=== PATIENT | female | born 1970 | race Hispanic/Latino ===

== ENCOUNTER 2018-06-23 12:26 | Outpatient (CLI) | payer BC | END 2018-06-23 12:27 | disposition home or self-care (01) | LOC: RAD 12:26 ==

== ENCOUNTER 2018-07-08 10:03 | Outpatient (CLI) | payer BC | END 2018-07-08 10:04 | disposition home or self-care (01) | LOC: RAD 10:03 ==

== ENCOUNTER 2018-08-07 14:40 | Day surgery (SDC) | payer BC ==
[2018-08-04 14:16] VITALS: BMI 28.1
[2018-08-07 15:10] VITALS: TEMP 97.5
[2018-08-07 15:25] LABS: HEMOGLOBIN 12.7 g/dL (12.0-16.0); MEAN CELL VOLUME 92.7 fl (80.0-105.0); MEAN CORPUSCULAR HGB CONC 32.4 g/dl (31.0-37.0); MEAN PLATELET VOLUME 9.3 fl (7.0-11.0); RBC 4.23 10^6/uL (3.5-6.1); RED CELL DISTRIBUTION WIDTH 13.1 % (11.5-14.5)
[2018-08-07 15:38] LABS: INR 1.07; PARTIAL THROMBOPLASTIN TIME 30.7 Seconds (26.9-38.3); PROTHROMBIN TIME 11.9 SECONDS (9.4-12.5)
[2018-08-07 15:52] LABS: BLOOD UREA NITROGEN 15 mg/dL (7-21); CALCIUM 9.7 mg/dL (8.4-10.5); GFR NON-AFRICAN AMERICAN > 60
[2018-08-07] MEDS ORDERED: Midazolam 2 MG/2 ML VIAL ONE (17:00)
[2018-08-07] MEDS ORDERED: Lidocaine 1% Inj (20ml) ONE (17:01)
[2018-08-07] MEDS ORDERED: Midazolam 2 MG/2 ML VIAL IVP ONE (17:30)
[2018-08-07] MEDS ORDERED: Oxycodone/Acetaminophen 5/325 mg Tab PO PRN (17:44)
[2018-08-07] MEDS ORDERED: Sodium Chloride 0.45% 1,000 ML IV SCH (17:45)
[2018-08-07 18:39] VITALS: RESP 17
--- NOTE | 2018-08-07 18:51 | CT ---
PROCEDURE: CT guided right lower lobe lung biopsy. HISTORY: Metastatic breast CA. New 5 cm right lower lobe mass. Evaluate for metastatic disease. PHYSICIAN(S): Sanjiv Huitron MD. TECHNIQUE: The relative risks and indications of the procedure were explained to the patient and consent obtained. The patient was placed prone on the CT scanner and preliminary images through the lung bases obtained. Conscious sedation and monitoring were provided throughout the procedure by a nurse. There is a 5 cm mass in the right lower lobe posteriorly. In addition there appears to be lymphangitic spread in the right lung.. A right posterior approach was selected and the area prepped and draped in the usual sterile fashion. 1% Xylocaine was used to anesthetize the skin and soft tissues. A 18 gauge guiding needle was advanced into the 5 cm right lower lobe nodule.. Its position was confirmed with CT. Using coaxial technique, multiple core biopsies were obtained. The postprocedure images show no evidence of large pneumothorax or significant hemorrhage.. IMPRESSION: 1. CT-guided right lower lobe lung biopsy as described above.
--- NOTE | 2018-08-07 18:57 | RAD ---
Date of service: 08/07/2018 HISTORY: Post right lung biopsy COMPARISON: 06/23/2018 single-view chest. August 07, 2018 CT thorax part of right lung biopsy. FINDINGS: LUNGS: Consolidative changes again identified as is a known mass in the right lower lobe previously biopsied. PLEURA: No pneumothorax following right lung biopsy. CARDIOVASCULAR: No atherosclerotic calcification present Normal. OSSEOUS STRUCTURES: No significant abnormalities. VISUALIZED UPPER ABDOMEN: Normal. OTHER FINDINGS: None. IMPRESSION: No adverse findings/no pneumothorax following biopsy of a right lower lobe mass.
[2018-08-07 19:14] VITALS: BP 159/96; PULSE 106; O2SAT 95
== END 2018-08-07 20:42 | disposition home or self-care (01) ==
LOC: SDS 14:40 → 3RSO 17:52 → SDS 20:42
PROVIDERS: ATTEND Radiology Vascular & Interventional Radiology
DX: C78.01 Secondary malignant neoplasm of right lung (principal); Z85.3 Personal history of malignant neoplasm of breast
CPT/HCPCS: 32405; 36415; 71045; 77012; 80048; 84703; 85027; 85610; 85730; 88305; J2250; J2405; J3010; J7030

== ENCOUNTER 2018-08-14 12:41 | Outpatient (CLI) | payer BC | END 2018-08-14 12:42 | disposition home or self-care (01) | LOC: CARDIO 12:41 ==

== ENCOUNTER 2018-08-21 12:59 | Inpatient (IN) | payer BC ==
[2018-08-04 14:16] VITALS: BMI 28.1
[2018-08-21] MEDS ORDERED: Lidocaine PF 2% (5 ml) Inj (For Cardiac Arrhy) ONE (14:25)
[2018-08-21 14:34] LABS: BASO # 0.04 K/mm3 (0.0-2.0); BASO % 0.2 % (0.0-3.0); HEMOGLOBIN 13.7 g/dL (12.0-16.0); LYMPH # 1.3 (1.2-3.4); LYMPH % 7.8 % (22.0-35.0); MEAN CELL VOLUME 91.6 fl (80.0-105.0); MEAN CORPUSCULAR HEMOGLOBIN 30.3 pg (25.0-35.0); MEAN CORPUSCULAR HGB CONC 33.1 g/dl (31.0-37.0); MEAN PLATELET VOLUME 9.7 fl (7.0-11.0); MONO # 0.4 (0.1-0.6); MONO % 2.3 % (1.0-6.0); RBC 4.52 10^6/uL (3.5-6.1); RED CELL DISTRIBUTION WIDTH 13.5 % (11.5-14.5); WHITE BLOOD COUNT 16.3 10^3/uL (4.5-11.0)
[2018-08-21 14:39] LABS: INR 1.05; PARTIAL THROMBOPLASTIN TIME 29.2 Seconds (26.9-38.3); PROTHROMBIN TIME 11.7 SECONDS (9.4-12.5)
[2018-08-21] MEDS ORDERED: Midazolam 2 MG/2 ML VIAL ONE ×3 (15:05→16:07)
[2018-08-21 15:11] LABS: BLOOD UREA NITROGEN 16 mg/dL (7-21); CALCIUM 10.2 mg/dL (8.4-10.5); GFR NON-AFRICAN AMERICAN > 60
--- NOTE | 2018-08-21 17:25 | CP.PCM.HP ---
History of Present Illness - History of Present Illness History of Present Illness: Oliver Arias DO, PGY-1 Hematology/Oncology Admission History and Physical for Dr. Araiza CC: s/p port placement, first session of Tecentriq, abraxane inpatient HPI: Ms. 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 She most recently had chest CT for concern of persistent, worsening cough, SOB, and URI sx's. She was found to have evidence of recurrent disease in the RLL of the lung, in the mediastinum, and the jugular and deep cervical chain lymph nodes on the right side. She subsequently underwent PET CT which confirmed RLL disease. CT-guided bx of the lung lesion confirmed to be poorly differentiated carcinoma consistent with her prior breast lesions. Patient was s een and examined s/p port placement. She states she continues to have persistent, bothersome cough but otherwise denies fever/chills, CP, SOB, abd pain/nausea/vomiting, or urinary complaints. 12-point ROS was otherwise negative except as specified above. 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), triple-negative R breast CA (s/p R mastectomy and adjuvant chemo and XRT 2001), L triple-negative breast CA (s/p lumpectomy w/adjuvant XRT with procure radiation and adjuvant xeloda completed 10/2016) Past Surgical History: R breast lumpectomy, L breast mastectomy with reconstruction Allergies: niacin, codein, moxifloxacin Home medications: Lyrica, tesalon pearls, prednisone 20 mg daily, prendan, omeprazole 20 mg daily, singulair 10 mg daily, Flonase PRN HS Family History: father and mother both alive and well, father has DM2, brother from leukemia Social History: denies current or prior tobacco, EtOH, or illicit drug use, 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 Present on Admission - Present on Admission Any Indicators Present on Admission: No History of DVT/PE: No History of Uncontrolled Diabetes: No Urinary Catheter: No Decubitus Ulcer Present: No Past Patient History - Past Social History Chewing Tobacco Use: No - CARDIAC Hx Pacemaker: No - NEUROLOGICAL Hx Paralysis: No - HEMATOLOGICAL/ONCOLOGICAL Hx Blood Transfusions: No - MUSCULOSKELETAL/RHEUMATOLOGICAL Hx Musculoskeletal Disorders: No - PSYCHIATRIC Hx Emotional Abuse: No Hx Physical Abuse: No Hx Substance Use: No - SURGICAL HISTORY Hx Surgeries: Yes - ANESTHESIA Hx Anesthesia Reactions: No Hx Malignant Hyperthermia: No Meds Allergies/Adverse Reactions: Allergies Allergy/AdvReac Type Severity Reaction Status Date / Time niacin Allergy Severe SWELLING Unverified 08/21/18 14:11 codeine Allergy NAUSEA Verified 08/04/18 14:12 moxifloxacin [From Avelox] Allergy SWELLING Verified 08/04/18 14:12 Physical Exam - Constitutional Appears: Non-toxic, No Acute Distress - Head Exam Head Exam: ATRAUMATIC, NORMOCEPHALIC - Eye Exam Eye Exam: EOMI, PERRL - ENT Exam ENT Exam: Mucous Membranes Moist - Neck Exam Neck exam: Negative for: Tenderness Additional comments: R sided port placement site appears clean, dry, intact - Respiratory Exam Respiratory Exam: Rhonchi (coarse breath sounds b/l). absent: Accessory Muscle Use, Rales, Wheezes, Respiratory Distress - Cardiovascular Exam Cardiovascular Exam: REGULAR RHYTHM, RRR, +S1, +S2. absent: Diastolic murmur, Gallop, Rubs, Systolic Murmur - GI/Abdominal Exam GI & Abdominal Exam: Soft. absent: Guarding, Rebound, Tenderness - Extremities Exam Extremities exam: Positive for: full ROM. Negative for: pedal edema - Back Exam Back exam: NORMAL INSPECTION - Neurological Exam Neurological exam: Alert, Oriented x3 - Psychiatric Exam Psychiatric exam: Normal Affect, Normal Mood - Skin Skin Exam: Dry, Intact, Warm Results - Vital Signs Recent Vital Signs: Last Vital Signs Temp 98 F 08/21/18 17:00 Pulse 106 H 08/21/18 17:00 Resp 12 08/21/18 17:00 BP 143/90 08/21/18 17:00 Pulse Ox 96 08/21/18 17:00 - Labs Result Diagrams: 08/21/18 13:20 08/21/18 13:20 Labs: Laboratory Results - last 24 hr 08/21/18 08/21/18 08/21/18 13:20 13:20 13:20 WBC 16.3 H D RBC 4.52 Hgb 13.7 Hct 41.4 MCV 91.6 MCH 30.3 MCHC 33.1 RDW 13.5 Plt Count 398 MPV 9.7 Neut % (Auto) 89.7 H Lymph % (Auto) 7.8 L Maverick % (Auto) 2.3 Eos % (Auto) 0.0 L Baso % (Auto) 0.2 Lymph # (Auto) 1.3 Maverick # (Auto) 0.4 Eos # (Auto) 0.0 Baso # (Auto) 0.04 Absolute Neuts (auto) 14.62 H PT 11.7 INR 1.05 APTT 29.2 Sodium 137 Potassium 4.4 Chloride 99 Carbon Dioxide 25 Anion Gap 18 BUN 16 Creatinine 0.5 L Est GFR ( Amer) > 60 Est GFR (Non-Af Amer) > 60 Random Glucose 174 H Calcium 10.2 Urine HCG, Qual 08/21/18 13:40 WBC RBC Hgb Hct MCV MCH MCHC RDW Plt Count MPV Neut % (Auto) Lymph % (Auto) Maverick % (Auto) Eos % (Auto) Baso % (Auto) Lymph # (Auto) Maverick # (Auto) Eos # (Auto) Baso # (Auto) Absolute Neuts (auto) PT INR APTT Sodium Potassium Chloride Carbon Dioxide Anion Gap BUN Creatinine Est GFR ( Amer) Est GFR (Non-Af Amer) Random Glucose Calcium Urine HCG, Qual Negative Assessment & Plan - Assessment and Plan (Free Text) Assessment: 47 yo F with PMH of chronic phase CML (dx 2011, maintained on Gleevec), triple- negative R breast CA (s/p R mastectomy and adjuvant chemo and XRT 2001), L triple-negative breast CA (s/p lumpectomy w/adjuvant XRT with procure radiation and adjuvant xeloda completed 10/2016) admitted s/p port placement for first doses of Tecentriq and abraxane. She was also found to have pyuria with leukocyte esterase and positive UCx prior to admission and is treated for cystitis. Plan: R sided triple-negative breast CA with RLL metastasis Identified on CT chest completed for patient's persistent cough, wheezing, SOB RLL mets with mediastinal, jugular, and deep cervical chain lymph nodes on the R Mets confirmed to be of breast origin by CT-guided biopsy Follow-up head, neck, chest CT ordered to r/o additional metastatic disease S/p port placement today Will repeat blood work in AM prior to starting Tecentriq and abraxane Tecentriq 840 mg and abraxane 100 mg to be given for initial doses tomorrow per [facility] protocol Prior TTE reviewed with katie Brown to proceed with chemotherapy as planned (given history of Adriamycin treatments) Cardiology consult placed for additional recs as needed Cough, SOB Likely 2/2 RLL metastatic disease Continue tessalon pearls, prednisone Pulmonology consult placed, all recs appreciated Persistent hyperglycemia Likely 2/2 need for steroid use Patient has no known history of DM2 Will check A1c Endocrinology consult placed, all recs appreciated UTI Identified on UA, confirmed with UCx completed prior to admission Will treat with rocephin DVT/GI PPX: Lovenox/protonix Full Code Liquid diet and advance to regular tomorrow AM Monitor on oncology unit Patient seen, examined with, and plan discussed with my attending Dr. Teodora Arias D.O. IM Resident PGY-1
[2018-08-21] MEDS: guaiFENesin 200 mg/10 ml Syrup UD PO PRN (18:40)
[2018-08-21] MEDS: cefTRIAXone 1 gm 1 GM/100 ML BAG IVPB SCH (18:40)
[2018-08-21] MEDS: Sodium Chloride 0.45% 1,000 ML IV SCH (18:41)
--- NOTE | 2018-08-21 20:15 | CON ---
DATE OF CONSULTATION: 08/21/2018 ENDOCRINOLOGY CONSULTATION ROOM: 369. HISTORY OF PRESENT ILLNESS: This is a 47-year-old female with known history of type 2 diabetes and hypertension, on oral hypoglycemic therapy, now admitted for ongoing chemo and immunotherapy for recurrent breast carcinoma and metastatic lung disease confirmed to be a poorly differentiated carcinoma as noted. PAST MEDICAL HISTORY: History of type 2 diabetes, currently on Prandin taken as 0.5 mg t.i.d. with meals; history of hypertension and dyslipidemia; history of triple negative right breast carcinoma with a right mastectomy, and received chemo and radiation therapy in 2001, followed by development of chronic myelogenous leukemia diagnosed in 2011 and has been on maintenance therapy with Gleevec therapy. She subsequently developed left triple negative breast carcinoma and underwent a lumpectomy with radiation and chemotherapy in 2017. Her recent CT scan showed the presence of a right lower lobe recurrent mass lesion and also present in the mediastinum and cervical lymph nodes confirming the presence of a poorly differentiated carcinoma consistent with her prior breast lesions. She is currently on prednisone taken as 20 mg once daily. FAMILY HISTORY: Her father has type 2 diabetes and the brothers succumbed from leukemia. SOCIAL HISTORY: The patient has supportive family. No known substance use. REVIEW OF SYSTEMS: Admits to generalized body weakness with progressive bouts of dizziness and lightheadedness with easy fatigability and tiredness and suboptimal energy level. No chest pains, but admits to progressive shortness of breath, especially on exertion. She also has a persistent productive cough over the last few weeks prior to admission. Her oral intake has been extremely poor and variable with vague and diffuse abdominal pain. No recent alterations of bowel and urinary patterns. PHYSICAL EXAMINATION: GENERAL: This is an average built female, in no apparent distress. VITAL SIGNS: Blood pressure of 140/80, pulse of 100 beats per minute regular, temperature 98, respirations 20, height is 5 feet 4 inches, weight is 164 pounds. HEENT: Head, normocephalic. Eyes, anicteric with pink conjunctivae. Fundoscopy not possible at this time. Ears, nose, and throat, otherwise normal. NECK: Supple. Thyroid gland is normal in size. No carotid bruits or any cervical adenopathy. CARDIOPULMONARY: Adynamic precordium. S1, S2 are rapid and regular. LUNGS: Show scattered rhonchi. ABDOMEN: Flat, soft with positive bowel sounds. EXTREMITIES: No peripheral edema. Pulses are +2 bilaterally. LABORATORY DATA: Her chemistries showed a BUN of 16, sodium 137, potassium 4.4, chloride 99, CO2 of 25, glucose 174, and creatinine 0.5 with a calcium of 10.2. Her hemoglobin is 13.7, hematocrit of 41, WBC is 16.3, and platelets are 398. ASSESSMENT: This is a 47-year-old female with known history of type 2 diabetes, controlled on low-dose oral hypoglycemic therapy, presenting here for ongoing chemo and immunotherapy for recurrent breast carcinoma and supervening lung and cervical node metastases. PLAN OF MANAGEMENT: We will continue the Prandin ordered as 0.5 mg t.i.d. with meals, and we will titrate incrementally as indicated to optimize metabolic control. We will obtain a hemoglobin A1c to confirm her prior glycemic control and baseline thyroid function studies will be ordered. We will obtain serial chemistries and continue the IV hydration as given at this time. We will follow and advise accordingly. Bushra Mtz MD
--- NOTE | 2018-08-21 20:20 | VASCULAR ---
PROCEDURE: Ultrasound and fluoroscopic right internal jugular venous access port. CLINICAL HISTORY: Metastatic breast carcinoma.Venous port for chemotherapy. PHYSICIAN(S): Sanjiv Huitron M.D. TECHNIQUE: The relative risks and indications of the procedure were explained to the patient and consent obtained. The patient was placed supine on the arteriogram table and the right neck and chest prepped and draped in the usual sterile fashion. Conscious sedation monitoring was provided throughout the procedure by a nurse. Antibiotics were given prior to the procedure. Under direct ultrasound guidance, the right internal jugular vein was punctured with a micro-puncture set. A 0.035 angled Glidewire was advanced into the IVC. A 4 cm incision was made below the right clavicle and the pocket blunted dissected. A 8 Danish single-lumen catheter, 23 cm long, was advanced to the SVC/RA junction. The catheter was trimmed and attached to the port. The port aspirates and injects easily. The port was placed in the pocket and closed in 2 layers. An access needle was placed. The patient tolerated the procedure well. IMPRESSION: Ultrasound and fluoroscopically placed right internal jugular venous access port.
[2018-08-21] MEDS: Fluticasone Nasal 50 mcg/Spray NS SCH (21:13)
[2018-08-21] MEDS: DiphenhydrAMINE 50 mg/ml Inj IVP PRN (21:45)
[2018-08-22] MEDS: Morphine 2 mg/ml ISec IVP PRN ×2 (01:47→23:02)
[2018-08-22] MEDS: Pantoprazole 40 mg EC Tab PO SCH (06:02)
[2018-08-22 06:56] LABS: BASO # 0.13 K/mm3 (0.0-2.0); BASO % 1.2 % (0.0-3.0); EOS % 0.4 % (1.5-5.0); HEMOGLOBIN 12.4 g/dL (12.0-16.0); LYMPH # 2.8 (1.2-3.4); LYMPH % 25.2 % (22.0-35.0); MEAN CORPUSCULAR HEMOGLOBIN 28.8 pg (25.0-35.0); MEAN PLATELET VOLUME 9.5 fl (7.0-11.0); MONO # 0.7 (0.1-0.6); MONO % 6.1 % (1.0-6.0); RBC 4.3 10^6/uL (3.5-6.1); RED CELL DISTRIBUTION WIDTH 13.7 % (11.5-14.5)
[2018-08-22 07:23] LABS: ALBUMIN 3.5 g/dL (3.0-4.8); ALT/SGPT 38 U/L (7-56); AST/SGOT 33 U/L (14-36); BLOOD UREA NITROGEN 13 mg/dL (7-21); CALCIUM 9.2 mg/dL (8.4-10.5); GFR NON-AFRICAN AMERICAN > 60; HDL CHOLESTEROL 43 mg/dL (29-60)
[2018-08-22 07:33] LABS: LDL CHOLESTEROL 141 mg/dL (0-129)
--- NOTE | 2018-08-22 08:53 | CT ---
Date of service: 08/22/2018 PROCEDURE: CT HEAD WITHOUT CONTRAST. HISTORY: triple negative breast CA, recent RLL mets COMPARISON: None available. TECHNIQUE: Axial computed tomography images were obtained through the head/brain without intravenous contrast. Radiation dose: Total exam DLP = 966.85 mGy-cm. This CT exam was performed using one or more of the following dose reduction techniques: Automated exposure control, adjustment of the mA and/or kV according to patient size, and/or use of iterative reconstruction technique. FINDINGS: HEMORRHAGE: No intracranial hemorrhage. BRAIN: No mass effect or edema. No atrophy or chronic microvascular ischemic changes. VENTRICLES: Unremarkable. No hydrocephalus. CALVARIUM: Unremarkable. PARANASAL SINUSES: Unremarkable as visualized. No significant inflammatory changes. MASTOID AIR CELLS: Unremarkable as visualized. No inflammatory changes. OTHER FINDINGS: None. IMPRESSION: Normal CT of the Head.
--- NOTE | 2018-08-22 08:58 | CT ---
Date of service: 08/22/2018 PROCEDURE: CT NECK WITHOUT CONTRAST HISTORY: RLL mets recently found, triple neg breast CA COMPARISON: None available. TECHNIQUE: CT of the neck without intravenous contrast. Coronal and sagittal reformats generated. Radiation dose: Total exam DLP = 365.46 mGy-cm. This CT exam was performed using one or more of the following dose reduction techniques: Automated exposure control, adjustment of the mA and/or kV according to patient size, and/or use of iterative reconstruction technique. FINDINGS: NASOPHARYNX: Unremarkable. SUPRAHYOID NECK: Unremarkable oropharynx, oral cavity, parapharyngeal space and retropharyngeal space. INFRAHYOID NECK: Unremarkable larynx, hypopharynx, and supraglottic space. Vocal cords intact. MASS: None. GLANDS: Parotid and submandibular glands unremarkable. Normal size thyroid gland, without nodule. LYMPH NODES: There is a 3 x 3.6 cm supriya mass in the right supraclavicular fossa. No other cervical lymph nodes are seen. CERVICAL SPINE: No fracture or focal lesion. OTHER FINDINGS: None. IMPRESSION: There is a 3 x 3.6 cm supriya mass in the right supraclavicular fossa. No other cervical lymph nodes are seen.
--- NOTE | 2018-08-22 09:02 | CT ---
Date of service: 08/22/2018 PROCEDURE: CT Chest without contrast HISTORY: RLL METS COMPARISON: Recent lung biopsy 08/07/2018 TECHNIQUE: Contiguous axial images were obtained through the chest without intravenous contrast enhancement. Sagittal and coronal reconstructions were performed. Radiation dose: Total exam DLP = 349.33 mGy-cm. This CT exam was performed using one or more of the following dose reduction techniques: Automated exposure control, adjustment of the mA and/or kV according to patient size, and/or use of iterative reconstruction technique. FINDINGS: LUNGS: There is a large mass in the right lower lobe measuring 37 x 45 mm. There is diffuse interstitial infiltration consistent with lymphangitis tumor spread. Multiple small nodules are seen in the periphery of the right lung. The left lung is clear. MEDIASTINUM: Unremarkable thoracic aorta. No aneurysm. Normal sized heart. Main pulmonary artery unremarkable. No vascular congestion. There is mediastinal adenopathy. There is a 26 mm pre tracheal lymph node. There is a 36 mm subcarinal lymph node. There is also right hilar adenopathy. No aortic atherosclerotic calcification. PLEURA: No pleural fluid. No pneumothorax. BONES: No fracture. No destructive lesion. UPPER ABDOMEN: Gallstone OTHER FINDINGS: None. IMPRESSION: There is a large mass in the right lower lobe measuring 37 x 45 mm. There is diffuse interstitial infiltration consistent with lymphangitic tumor spread. Multiple small nodules are seen in the periphery of the right lung. The left lung is clear. There is mediastinal adenopathy. There is a 26 mm pre tracheal lymph node. There is a 36 mm subcarinal lymph node. There is also right hilar adenopathy.
--- NOTE | 2018-08-22 09:08 | CP.PCM.PN ---
Subjective - Date & Time of Evaluation Date of Evaluation: 08/22/18 Time of Evaluation: 07:00 - Subjective Subjective: Oliver Arias DO, PGY-1 Hematology/Oncology Progress Note for Dr. Araiza Patient was seen and examined at bedside this AM. She reports some discomfort at the port site last night but this has improved. She also states she had trouble sleeping last night but was able to fall asleep after morphine was administered. She also complains of discomfort fromt he tape at the port site. She otherwise has no new complaints and denies fever/chills, CP, SOB, abd pain/nausea/vomiting. Objective - Vital Signs/Intake and Output Vital Signs (last 24 hours): Temp Pulse Resp BP Pulse Ox 97.3 F L 100 H 20 108/73 94 L 08/22/18 08:15 08/22/18 08:15 08/22/18 08:15 08/22/18 08:15 08/22/18 08:15 Intake and Output: 08/22/18 08/22/18 06:59 18:59 Intake Total 840 960 Output Total 0 Balance 840 960 - Medications Medications: Current Medications Acetaminophen (Tylenol 325mg Tab) 650 mg PO Q6H PRN PRN Reason: Pain, Mild (1-3) Benzonatate (Tessalon Perles) 200 mg PO TID [facility] Last Admin: 08/21/18 18:40 Dose: 200 mg Diphenhydramine HCl (Benadryl) 25 mg IVP HS PRN PRN Reason: Sleep Last Admin: 08/21/18 21:45 Dose: 25 mg Enoxaparin Sodium (Lovenox) 40 mg SC DAILY [facility]; Protocol Fluticasone Propionate (Flonase) 1 actuation NS QPM [facility] Last Admin: 08/21/18 21:13 Dose: Not Given Guaifenesin (Robitussin) 200 mg PO Q4H PRN PRN Reason: Cough and congestion Last Admin: 08/21/18 18:40 Dose: 200 mg Sodium Chloride (Sodium Chloride 0.45%) 1,000 mls @ 80 mls/hr IV .[id number] [facility] Last Admin: 08/21/18 18:41 Dose: 80 mls/hr Ceftriaxone Sodium (Rocephin 1 Gram Ivpb) 1 gm in 100 mls @ 100 mls/hr IVPB DAILY [facility]; Protocol Last Admin: 08/21/18 18:40 Dose: 100 mls/hr Ondansetron HCl 8 mg/Dexamethasone 8 mg/Diphenhydramine HCl 25 mg/Famotidine 20 mg/ Sodium Chloride 58.5 mls @ 175.5 mls/hr IVPB ONCE ONE Stop: 08/22/18 14:19 Atezolizumab 840 mg/ Sodium (Chloride) 264 mls @ 264 mls/hr IV ONCE ONE Stop: 08/22/18 14:59 Paclitaxel/Albumin ( Nanoparticle) 184 mg/ IV SUPPLIES 36.8 mls @ 49.067 mls/hr IV ONCE ONE Stop: 08/22/18 14:44 Lorazepam (Ativan) 0.5 mg IVP HS PRN; Protocol PRN Reason: Anxiety Montelukast Sodium (Singulair) 10 mg PO QPM [facility] Last Admin: 08/21/18 18:40 Dose: 10 mg Morphine Sulfate (Morphine) 2 mg IVP Q4H PRN PRN Reason: Pain, moderate (4-7) Last Admin: 08/22/18 01:47 Dose: 2 mg Imatinib Mesylate [ Imatinib Mesylate] 400 Mg 400 mg PO DAILY [facility] Ondansetron HCl (Zofran Inj) 4 mg IVP Q6H PRN PRN Reason: Nausea/Vomiting Pantoprazole Sodium (Protonix Ec Tab) 40 mg PO 0600 [facility] Last Admin: 08/22/18 06:02 Dose: 40 mg Prednisone (Prednisone Tab) 10 mg PO DAILY [facility] Pregabalin (Lyrica) 50 mg PO BID [facility] Last Admin: 08/21/18 18:40 Dose: 50 mg Repaglinide (Prandin) 0.5 mg PO TID [facility] - Labs Labs: 08/22/18 06:22 08/22/18 06:22 PT 11.7 SECONDS (9.4-12.5) 08/21/18 13:20 INR 1.05 08/21/18 13:20 APTT 29.2 Seconds (26.9-38.3) 08/21/18 13:20 - Constitutional Appears: Non-toxic, No Acute Distress - Head Exam Head Exam: ATRAUMATIC, NORMOCEPHALIC - Eye Exam Eye Exam: EOMI, PERRL - ENT Exam ENT Exam: Mucous Membranes Moist - Neck Exam Neck Exam: Full ROM, Lymphadenopathy (supraclavicular node palpated on R) Additional comments: R-sided port placement site appears clean, dry, intact - Respiratory Exam Respiratory Exam: Clear to Ausculation Bilateral, NORMAL BREATHING PATTERN. absent: Rales, Rhonchi, Wheezes - Cardiovascular Exam Cardiovascular Exam: REGULAR RHYTHM, RRR, +S1, +S2. absent: Gallop, Rubs, Murmur - GI/Abdominal Exam GI & Abdominal Exam: Soft, Normal Bowel Sounds. absent: Guarding, Tenderness - Extremities Exam Extremities Exam: absent: Calf Tenderness, Pedal Edema - Back Exam Back Exam: NORMAL INSPECTION - Neurological Exam Neurological Exam: Alert, Awake, Oriented x3 - Psychiatric Exam Psychiatric exam: Normal Affect, Normal Mood - Skin Skin Exam: Dry, Intact, Warm Assessment and Plan - Assessment and Plan (Free Text) Assessment: 47 yo F with PMH of chronic phase CML (dx 2011, maintained on Gleevec), L triple-negative breast CA (s/p L mastectomy with adjuvant chemo and XRT 2001), R triple negative breast CA (s/p lumpectomy w/adjuvant XRT with procure and adjuvant xeloda completed 10/2016) admitted s/p port placement for first doses of Tecentriq and abraxane for new findings of RLL lung metastasis. She was also found to have pyuria with leukocyte esterase and positive UCx prior to admission and is being treated for cystitis. Plan: R sided triple-negative breast CA with RLL metastasis Repeat head, neck, chest CT shows 3 x 3.6 cm supriya mass in R supraclavicular region, also palpated on exam Chest CT redemonstrated large RLL mass measuring 37 x 45 mm with lymphangitic spread and mediastinal adenopathy Head CT negative for any disease Will receive first doses of Tecentriq and abraxane starting this afternoon Prior TTE was reviewed and patient examined by Dr. Rangel this AM, gave clear ance to proceed with therapy Cardiology following, all recs appreciated Cough, SOB Likely 2/2 RLL metastatic disease Patient states cough is persistent but improved, especially with robitussin Pulmonology following, all recs appreciated Persistent hyperglycemia Likely 2/2 steroid use on DM2 Continue prandin as prescribed 0.5 mg AC Endocrinology following, all recs appreciated UTI Identified on UA, confirmed with UCx completed prior to admission Continue treatment with rocephin DVT/GI PPX: Lovenox/protonix Full Code Regular diet Monitor on oncology unit Patient seen, examined with, and plan discussed with my attending Dr. Teodora Arias, OniO. IM Resident PGY-1
[2018-08-22] MEDS ORDERED: IMATINIB MESYLATE 400 MG PO SCH (10:00)
[2018-08-22] MEDS: Enoxaparin 40 mg Syringe SC SCH (10:01)
[2018-08-22] MEDS: guaiFENesin 200 mg/10 ml Syrup UD PO PRN ×2 (10:01→18:19)
[2018-08-22] MEDS: cefTRIAXone 1 gm 1 GM/100 ML BAG IVPB SCH (10:03)
--- NOTE | 2018-08-22 11:48 | CON ---
DATE OF CONSULTATION: 08/22/2018 REQUESTING PHYSICIAN: Dr. Araiza. REASON FOR CONSULTATION: Dyspnea, breast cancer. 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 She has had a recent worsening cough. She was found to have evidence of recurrence in her right lower lobe as well as in her jugular and cervical lymph nodes. She has had difficulty swallowing and lying flat. An echocardiogram was recently performed revealing evidence of normal chamber size with a normal LV systolic function. PAST MEDICAL HISTORY: Past history is notable for the problems mentioned above. She has developed steroid-induced diabetes as well. HOME MEDICATIONS: Her medications at home include omeprazole, prednisone, Prandin, Singulair, Flonase, Lyrica. ALLERGIES: SHE HAS HAD A REACTION TO NIACIN, CODEINE AND OFLOXACIN AGENTS. SOCIAL HISTORY: She does not smoke or drink. She has a desk job. FAMILY HISTORY: Both parents are alive and well. Father is diabetic. One brother from leukemia. REVIEW OF SYSTEMS: A 10-point review of systems is notable mainly for the problems mentioned above. PHYSICAL EXAMINATION: GENERAL: She is a middle-aged woman, who appears mildly uncomfortable due to some difficulty swallowing as well as her persistent cough. VITAL SIGNS: Her blood pressure is 110/76 with a pulse of 100-120 in sinus, respirations are 14 and she is afebrile. HEENT: Cervical lymphadenopathy is present. Dressing is present over her right thorax and neck at the site of her chemotherapy port insertion. CHEST: Reveals bilateral scattered rhonchi. HEART: Reveals the PMI to be in normal position. No pathological murmurs or gallops are noted. ABDOMEN: Soft and nontender with normoactive bowel sounds. EXTREMITIES: No edema. SKIN: Warm and dry. PSYCHIATRIC: Mild anxiety, but otherwise normal mood and affect. NEUROLOGIC: Alert and oriented x3. No gross motor or sensory deficits noted. DIAGNOSTIC DATA: Potassium 4.1, BUN and creatinine are 13 and 0.5. White count 11, hemoglobin and hematocrit are 12.4 and 40, with a platelet count of 346,000. PT/PTT normal. Cholesterol is 225 with an LDL of 141, triglycerides 261, HDL of 43. IMPRESSION: 1. Cough and dyspnea likely secondary to lung malignancy and compression effect of cervical adenopathy. 2. No evidence of left ventricular systolic or diastolic dysfunction at the present time. 3. Extensive recurrence of her breast cancer. 4. Rest of the problems as noted. RECOMMENDATIONS: At this time, there is no cardiac contraindication to proceeding with her planned cancer therapy. Follow up echocardiogram will be planned after several cycles of therapy to monitor her left ventricular function. I will follow along as needed. Thank you for this consultation. Sanchez Rangel MD
[2018-08-22] MEDS ORDERED: Albuterol-Ipratrop 3 mg / 0.5 (3 ml) UD IH PRN (12:35)
[2018-08-22] MEDS ORDERED: Sodium Chloride 0.9% 750 ML IV SCH (13:00)
[2018-08-22] MEDS ORDERED: ONDANSETRON IVPB ONE (14:00)
[2018-08-22] MEDS ORDERED: FAMOTIDINE IVPB ONE (14:00)
[2018-08-22] MEDS ORDERED: SODIUM CHLORIDE 0.9% IV ONE (14:00)
[2018-08-22] MEDS ORDERED: ATEZOLIZUMAB IV ONE (14:00)
[2018-08-22] MEDS ORDERED: [UNRECOGNIZED DRUG - OTHER] IVPB ONE (14:00)
[2018-08-22] MEDS ORDERED: DEXAMETHASONE IVPB ONE (14:00)
[2018-08-22] MEDS ORDERED: DIPHENHYDRAMINE IVPB ONE (14:00)
--- NOTE | 2018-08-22 14:26 | CON ---
DATE: 08/22/2018 PULMONARY CONSULT NOTE REFERRING PHYSICIAN: Dr. Huitron. REASON FOR CONSULT: Chronic cough and lung mass. 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 The patient was admitted for replacement of infusion port and start of chemotherapy and immunotherapy. She reports a nonproductive recurrent cough, shortness of breath with exertions on nasal congestion underwent CAT scan which showed recurrent disease in right lower lobe of the lung, mediastinum jugular and cervical lymph node on the right. PAST MEDICAL HISTORY: As per history of present illness. ALLERGIES: NIACIN, CODEINE, MOXIFLOXACIN. SOCIAL HISTORY: Nonsmoker. No ETOH abuse. No illicit drug use. FAMILY HISTORY: No significant cardiopulmonary disease reported. MEDICATIONS: Reviewed. Tylenol 650 every 6 hours p.r.n., Atezolizumab 840 mg and sodium chloride 264 mL at 264 mL per hour one time dose, Tessalon-Perles 200 mg 3 times a day, Rocephin 1 g daily, Benadryl 25 mg IV push at bedtime, p.r.n., Lovenox 40 mg subcutaneous daily, Flonase nasal spray in the evening, Robitussin 200 mg every 4 hours p.r.n., Ativan 0.5 mg IV push at bedtime p.r.n., Singulair 10 mg in the evening, morphine 2 mg every 4 hours p.r.n., Imatinib Mesylate 400 mg daily, Zofran 4 mg IV push every 6 hours p.r.n., Zofran 8 mg, dexamethasone 8 mg, diphenhydramine 25 mg, famotidine 20 mg, sodium chloride 58.5 mL of 175.5 mL per hour one time dose, nanoparticle 184 mg IV one time dose, Protonix 40 mg daily, prednisone 10 mg daily, Lyrica 50 mg twice a day, Prandin 0.5 mg three times a day, sodium chloride 0.45 mg 1000 mL at 80 mL per hour. REVIEW OF SYSTEMS: No headache, rhinitis, chest pain, abdominal pain, nausea, vomiting, diarrhea, leg pain or leg swelling reported. The patient does having at times nonproductive cough, shortness of breath with exertion and nasal congestion. PHYSICAL EXAMINATION: GENERAL: No acute distress. VITAL SIGNS: Blood pressure 108/73, pulse 100, temperature 97.3 and oxygen saturation 94% on room air. HEENT: Moist mucous membranes. Mallampati score is 4. Crowded airway. NECK: Cervical lymphadenopathy. Dressing present to right neck, poor insertion site. CHEST: Bilateral scattered rhonchi. CARDIOVASCULAR: S1 and S2. ABDOMEN: Soft and nontender. No distension. No organomegaly. Positive bowel sounds. EXTREMITIES: No bilateral lower extremity edema. NEUROLOGIC: Awake, alert and verbal. Following commands. LABORATORY DATA: Reviewed. WBC 11, RBC 4.3, hemoglobin 12.4, hematocrit 40 and platelets 346. PT 11.7, INR 1.05 and APTT 29.2. Sodium 136, potassium 4.1, chloride 100, carbon dioxide 28, anion gap 13, BUN 13, creatinine 0.5, GFR greater than 60, random glucose 106, calcium 9.2, phosphorous 3.9, magnesium 2.1, total bilirubin 0.4, AST 33, ALT 38, alkaline phosphatase 103, total protein 7.0, albumin 3.5, globulin 3.5, albumin-globulin ratio 1.0., triglycerides 261, cholesterol 225, LDL cholesterol 141, HDL cholesterol 43 and TSH 1.85. Urine hCG negative. Chest CT shows large mass in the right lower lobe measuring 37/45 mm diffuse interstitial infiltration consistent with lymphangitic tumor spread multiple small nodules seen in the previously of the right lung, the left lung is clear, mediastinal adenopathy it is 26 mm pretracheal lymph node 36 mm, subcorneal lymph node also right hilar adenopathy. Head CT shows normal CT of the head soft tissue, neck CT showed 3 X 3.6 cm supriya mass in the right supraclavicular fossa. No other cervical lymph nodes are seen. IMPRESSION AND PLAN: Right-sided triple negative breast cancer with right lower lobe metastasis, urinary tract infection currently on IV antibiotics, history of chronic phase chronic myeloid leukemia maintained on Gleevec, suspected sleep apnea syndrome. The patient not able to complete sleep study as outpatient. We recommend sleep study as outpatient. We will followup with pulmonary function test that was done as outpatient. The patient will start chemotherapy today. Agree with current treatment plan. Continue leukotriene inhibitors, Lyrica for cough. Gastric prophylaxis and deep venous thrombosis prophylaxis. We will add inhaled bronchodilators. Continue Flonase nasal congestion. IV antibiotics for urinary tract infection. Sleep apnea precaution and head of bed elevated at 45 degrees, fall precautions. Hematology and oncology followup. This patient was seen and examined with Dr. Delong. Discussed assessment and plan as described above. The patient was seen and examined with Eric Ramirez, nurse practitioner. Discussed assessment and plan as described above. Thank you for this consult. We will follow with you. Eric Ramirez APN Patrick Delong MD ALY
[2018-08-22] MEDS: Fluticasone Nasal 50 mcg/Spray NS SCH (18:22)
[2018-08-22] MEDS: Sodium Chloride 0.45% 1,000 ML IV SCH (18:45)
[2018-08-22] MEDS: Arformoterol 15 mcg/2 ml Inh Sol IH SCH (20:05)
[2018-08-22] MEDS: Budesonide 0.5 mg/2 ml Inhal Susp UD IH SCH (20:05)
[2018-08-22 20:48] LABS: PH,URINE 6.5 (4.7-8.0); URINE BILIRUBIN NEGATIVE (NEGATIVE); URINE BLOOD LARGE (NEGATIVE); URINE GLUCOSE (UA) NEGATIVE (NEGATIVE); URINE LEUKOCYTE ESTERASE SMALL Leu/uL (NEGATIVE); URINE PROTEIN NEGATIVE mg/dL (<30 mg/dL); URINE UROBILINOGEN 0.2 E.U./dL (<1 E.U./dL)
[2018-08-22 20:49] LABS: URINE APPEARANCE CLEAR (CLEAR); URINE COLOR LIGHT YELLOW (YELLOW)
--- NOTE | 2018-08-22 20:51 | PN ---
DATE: 08/22/2018 LOCATION: Room 369 SUBJECTIVE: This is a 47-year-old female with recurrent breast carcinoma and diffuse metastases to both the lungs and the cervical lymph nodes and is now being followed closely for metabolic management. Her glycemic levels are fluctuating but improved and her oral intake remains really quite variable at this time as noted. Her glucose levels today have ranged from 106-174 mg/dL. Her A1c is 7.3%. Her chemistry showed a BUN of 13, sodium 136, potassium 4.1, chloride 100, CO2 of 28, glucose 106, and creatinine 0.5. Her TSH is 1.85 with a serum cortisol level of 1.4 mcg/dL which is really quite low and indicative of suboptimal metabolic control of her diabetic condition even with the current steroid dosing as given. Her Coumadin level is low normal at 3.5 with albumin-globulin ratio of 1.0 which may also contribute to the low normal cortisol binding globulin and subsequent low normal serum cortisol levels as noted. ASSESSMENT: This is a 47-year-old female with recurrent breast carcinoma with lung metastases with ongoing chemotherapy and immunotherapy as given and is now being followed closely for metabolic management. Her glycemic levels are near optimal at this time, so we will continue the low-dose Prandin given as 0.5 mg t.i.d. with meals. We will continue also her prednisone given as 10 mg once daily as ordered. We will titrate incrementally as indicated to optimize metabolic control. We will obtain serial chemistries and supplement accordingly needed. We will follow. Bushra Mtz MD
[2018-08-22 20:52] LABS: URINE EPITHELIAL CELLS 0 - 2 /hpf (0-5); URINE WBC 0 - 2 /hpf (0-6)
--- NOTE | 2018-08-22 20:59 | CON ---
DATE OF CONSULTATION: 08/22/2018 The patient is seen earlier today in room 369, bed 2. CHIEF COMPLAINT: Dysuria, frequency, and pelvic discomfort times several days. HISTORY OF PRESENT ILLNESS: This is a 47-year-old female with breast cancer, chronic myelocytic leukemia, and diabetes mellitus, who is admitted for Port-A-Cath placement, which she had done, and she is having dysuria, frequency, pelvic pain, and low-grade fevers. Infectious Disease consultation requested. REVIEW OF SYSTEMS: Reveals the patient has no headaches, no chest pain, no abdominal pain. There is dysuria, there is frequency, and there is pelvic discomfort. No new back pain. PAST MEDICAL HISTORY: Significant for diabetes mellitus, CML on Gleevec, and right breast cancer. PAST SURGICAL HISTORY: Significant for a left mastectomy, right lumpectomy. ALLERGIES: THE PATIENT IS ALLERGIC TO MOXIFLOXACIN. MEDICATIONS AT HOME: Reviewed. PHYSICAL EXAMINATION: GENERAL: She is in bed, appearing comfortable, answering questions appropriately. VITAL SIGNS: Temperature of 99, blood pressure is 165/80, respiratory rate of 20, heart rate of 100. HEENT: Examination of HEENT is unremarkable. NECK: Supple. LUNGS: Have decreased breath sounds. HEART: Normal S1, S2. ABDOMEN: Soft. LABORATORY DATA: Laboratory examination reveals a white count of 16,300, hemoglobin of 13, platelets of 398. Chemistries revealed a BUN of 16, creatinine of 0.5. Microbiology is pending. The patient had a CT scan of the chest and a large mass in the right lower lobe is noted on the CT scan of the chest consistent with lymphangitic tumor spread, multiple small nodules. ASSESSMENT AND PLAN: This is a 47-year-old female with tachycardia and leukocytosis and the urinary symptoms of frequency, dysuria, pelvic fullness with; 1. Systemic inflammatory response syndrome, urine as the source. We will treat the patient with Maxipime and order urine cultures, urinalysis, and we will make further recommendations upon availability of initial results. Sean Crocker MD
[2018-08-22] MEDS: Cefepime 1gm in NS 100ml 1 GM/100 ML BAG IVPB SCH (21:10)
[2018-08-22] MEDS: DiphenhydrAMINE 50 mg/ml Inj IVP PRN (22:56)
[2018-08-23] MEDS: Sodium Chloride 0.45% 1,000 ML IV SCH (03:30)
[2018-08-23] MEDS: Pantoprazole 40 mg EC Tab PO SCH (05:28)
[2018-08-23] MEDS: Cefepime 1gm in NS 100ml 1 GM/100 ML BAG IVPB SCH (05:28)
[2018-08-23 07:50] LABS: BASO # 0.02 K/mm3 (0.0-2.0); BASO % 0.2 % (0.0-3.0); EOS % 0.1 % (1.5-5.0); HEMOGLOBIN 12.5 g/dL (12.0-16.0); LYMPH # 1.2 (1.2-3.4); MEAN CELL VOLUME 93.3 fl (80.0-105.0); MEAN CORPUSCULAR HEMOGLOBIN 29.8 pg (25.0-35.0); MEAN CORPUSCULAR HGB CONC 31.9 g/dl (31.0-37.0); MEAN PLATELET VOLUME 10.1 fl (7.0-11.0); MONO # 0.4 (0.1-0.6); MONO % 2.9 % (1.0-6.0); RBC 4.2 10^6/uL (3.5-6.1); RED CELL DISTRIBUTION WIDTH 13.4 % (11.5-14.5); WHITE BLOOD COUNT 12.3 10^3/uL (4.5-11.0)
[2018-08-23] MEDS: Budesonide 0.5 mg/2 ml Inhal Susp UD IH SCH (08:21)
[2018-08-23] MEDS: Arformoterol 15 mcg/2 ml Inh Sol IH SCH (08:21)
[2018-08-23 08:26] LABS: ALB/GLOB RATIO 1.1 (1.1-1.8); ALBUMIN 3.7 g/dL (3.0-4.8); ALT/SGPT 44 U/L (7-56); AST/SGOT 33 U/L (14-36); BLOOD UREA NITROGEN 12 mg/dL (7-21); CALCIUM 9.3 mg/dL (8.4-10.5); GFR NON-AFRICAN AMERICAN > 60
[2018-08-23] MEDS: Enoxaparin 40 mg Syringe SC SCH (09:04)
[2018-08-23] MEDS ORDERED: Benzocaine/Menthol (Cepacol) Lozenge MT PRN (12:49)
[2018-08-23 14:48] VITALS: BP 125/77; PULSE 99; RESP 20; TEMP 97.7; O2SAT 97
--- NOTE | 2018-08-23 15:02 | PN ---
DATE: 08/23/2018 ENDO FOLLOWUP NOTE LOCATION: Room 369. SUBJECTIVE: This is a 47-year-old female with metastatic breast carcinoma, now being followed closely for metabolic management. Her oral intake remains variable, but fairly satisfactory at this time and the glucose values have ranged from 106-145 mg/dL. Her A1c is 7.3%. Her chemistries today showed a BUN of 12, sodium 137, potassium 4.2, chloride 99, CO2 of 26, glucose 145 and creatinine 0.4. Her cortisol level is 1.4 and the repeat level is pending at this time. ASSESSMENT: This is a 47-year-old female with type 2 diabetes and near optimal metabolic control on a low-dose oral hypoglycemic therapy, this is actually related to the previous steroid therapy as part of her chemo regimen given. She also has possible secondary hypoadrenalism or adrenal insufficiency from the long-term steroid dependence . However, she also has underlying hypoalbuminemia, which will contribute to the low normal cortisol binding globulins and subsequent low normal cortisol values otherwise. PLAN OF MANAGEMENT: The patient is hemodynamically stable with no overt constitutional manifestations. We will continue the oral prednisone given as 10 mg once daily and consider an evening dose if the repeat cortisol levels are still low normal as noted. We will obtain serial chemistries and supplement accordingly as needed. We will follow. Bushra Mtz MD
--- NOTE | 2018-08-23 17:06 | CP.PCM.DIS ---
Provider - Provider Date of Admission: 08/21/18 16:30 Attending physician: Sanjiv Huitron MD Primary care physician: Bhanu Araiza MD Consults: 08/21/18 17:05 Cardiology Consult Routine Comment: Consulting Provider: Sanchez Rangel Consulting Physician: Sanchez Rangel Reason for Consult: known to Dr. Rangel, previously on cardiotoxic chemo Endocrinology Consult Routine Comment: Consulting Provider: Bushra Mtz Consulting Physician: Bushra Mtz Reason for Consult: hyperglycemia, requiring steroid therapy for breathing Pulmonology Consult Routine Comment: Consulting Provider: Patrick Delong Consulting Physician: Patrick Delong Reason for Consult: chronic cough, new RLL lung mass 08/22/18 10:00 Infectious Disease Consult Routine Comment: Consulting Provider: Sean Crocker Consulting Physician: Sean Crocker Reason for Consult: UTI, starting chemo/immunotherapy Time Spent in preparation of Discharge (in minutes): 45 Diagnosis - Discharge Diagnosis (1) Triple negative malignant neoplasm of breast Status: Chronic Hospital Course - Lab Results Lab Results: Most Recent Lab Values WBC 12.3 10^3/uL (4.5-11.0) H 08/23/18 06:00 RBC 4.20 10^6/uL (3.5-6.1) 08/23/18 06:00 Hgb 12.5 g/dL (12.0-16.0) 08/23/18 06:00 Hct 39.2 % (36.0-48.0) 08/23/18 06:00 MCV 93.3 fl (80.0-105.0) 08/23/18 06:00 MCH 29.8 pg (25.0-35.0) 08/23/18 06:00 MCHC 31.9 g/dl (31.0-37.0) 08/23/18 06:00 RDW 13.4 % (11.5-14.5) 08/23/18 06:00 Plt Count 336 10^3/uL (120.0-450.0) 08/23/18 06:00 MPV 10.1 fl (7.0-11.0) 08/23/18 06:00 Neut % (Auto) 86.8 % (50.0-68.0) H 08/23/18 06:00 Lymph % (Auto) 10.0 % (22.0-35.0) L 08/23/18 06:00 [place] % (Auto) 2.9 % (1.0-6.0) 08/23/18 06:00 Eos % (Auto) 0.1 % (1.5-5.0) L 08/23/18 06:00 Baso % (Auto) 0.2 % (0.0-3.0) 08/23/18 06:00 Lymph # (Auto) 1.2 (1.2-3.4) 08/23/18 06:00 [place] # (Auto) 0.4 (0.1-0.6) 08/23/18 06:00 Eos # (Auto) 0.0 (0.0-0.7) 08/23/18 06:00 Baso # (Auto) 0.02 K/mm3 (0.0-2.0) 08/23/18 06:00 Absolute Neuts (auto) 10.66 (1.4-6.5) H 08/23/18 06:00 PT 11.7 SECONDS (9.4-12.5) 08/21/18 13:20 INR 1.05 08/21/18 13:20 APTT 29.2 Seconds (26.9-38.3) 08/21/18 13:20 Sodium 137 mmol/L (132-148) 08/23/18 06:00 Potassium 4.2 mmol/L (3.6-5.0) 08/23/18 06:00 Chloride 99 mmol/L (98-107) 08/23/18 06:00 Carbon Dioxide 26 mmol/L (21-33) 08/23/18 06:00 Anion Gap 17 (10-20) 08/23/18 06:00 BUN 12 mg/dL (7-21) 08/23/18 06:00 Creatinine 0.4 mg/dl (0.7-1.2) L 08/23/18 06:00 Est GFR ( Amer) > 60 08/23/18 06:00 Est GFR (Non-Af Amer) > 60 08/23/18 06:00 Random Glucose 145 mg/dL (70-110) H 08/23/18 06:00 Hemoglobin A1c 7.3 % (4.2-6.5) H 08/22/18 06:22 Calcium 9.3 mg/dL (8.4-10.5) 08/23/18 06:00 Phosphorus 3.9 mg/dL (2.5-4.5) 08/22/18 06:22 Magnesium 2.1 mg/dL (1.7-2.2) 08/22/18 06:22 Total Bilirubin 0.3 mg/dL (0.2-1.3) 08/23/18 06:00 AST 33 U/L (14-36) 08/23/18 06:00 ALT 44 U/L (7-56) 08/23/18 06:00 Alkaline Phosphatase 111 U/L (38-126) 08/23/18 06:00 Total Protein 7.3 g/dL (5.8-8.3) 08/23/18 06:00 Albumin 3.7 g/dL (3.0-4.8) 08/23/18 06:00 Globulin 3.5 gm/dL 08/23/18 06:00 Albumin/Globulin Ratio 1.1 (1.1-1.8) 08/23/18 06:00 Triglycerides 261 mg/dL (35-160) H 08/22/18 06:22 Cholesterol 225 mg/dL (130-200) H 08/22/18 06:22 LDL Cholesterol Direct 141 mg/dL (0-129) H 08/22/18 06:22 HDL Cholesterol 43 mg/dL (29-60) 08/22/18 06:22 TSH 3rd Generation 1.85 mIU/mL (0.46-4.68) 08/22/18 06:22 Cortisol AM Sample 1.1 ug/dL (4.46-22.7) L 08/23/18 06:00 Urine Color Light yellow (YELLOW) 08/22/18 19:30 Urine Appearance Clear (CLEAR) 08/22/18 19:30 Urine pH 6.5 (4.7-8.0) 08/22/18 19:30 Ur Specific [place] <= 1.005 (1.005-1.035) 08/22/18 19:30 Urine Protein Negative mg/dL (<30 mg/dL) 08/22/18 19:30 Urine Glucose (UA) Negative mg/dL (NEGATIVE) 08/22/18 19:30 Urine Ketones Negative mg/dL (NEGATIVE) 08/22/18 19:30 Urine Blood Large (NEGATIVE) H 08/22/18 19:30 Urine Nitrate Negative (NEGATIVE) 08/22/18 19:30 Urine Bilirubin Negative (NEGATIVE) 08/22/18 19:30 Urine Urobilinogen 0.2 E.U./dL (<1 E.U./dL) 08/22/18 19:30 Ur Leukocyte Esterase Small Justina/uL (NEGATIVE) H 08/22/18 19:30 Urine RBC 2 - 5 /hpf (0-2) H 08/22/18 19:30 Urine WBC 0 - 2 /hpf (0-6) 08/22/18 19:30 Ur Epithelial Cells 0 - 2 /hpf (0-5) 08/22/18 19:30 Urine HCG, Qual Negative (NEGATIVE) 08/21/18 13:40 - Hospital Course Hospital Course: Oliver Arias DO, PGY-1 Heme/Onc Discharge Summary for Dr. Araiza Prior to admission: Corinne is a 47 year old female with PMH of chronic phase CML (dx 2011, maintained on Gleevec), L triple-negative breast CA (s/p L mastectomy with adjuvant chemo and XRT 2001), R triple negative breast CA (s/p lumpectomy w/adjuvant XRT with procure and adjuvant xeloda completed 10/2016) admitted s/p port placement for first doses of Tecentriq and abraxane for new findings of RLL lung metastasis. She was also found to have pyuria with leukocyte esterase and positive UCx prior to admission and was treated for cystitis. Hospitalization course: While admitted, patient's port was verified to be functional per IR. She received first doses of Tecentriq and abraxane yesterday evening. She states that following the chemo, she felt some numbness/tingling in her fingers and had some episodes of nausea. On examination this AM, she states these have resolved. She continues to complain of cough. Case was discussed with pulmonology who recommends increasing patient's dose of lyrica to 50 mg BID, Breo inhaler, and decreasing prednisone dose to 10 mg. Appropriate prescriptions were sent to patient's preferred pharmacy prior to discharge. Discharge plan and follow up instructions were discussed with patient in detail. All questions were answered. Patient seen, examined, and discharge plan discussed with my attending Dr. Teodora Arias D.O. IM Resident PGY-1 Discharge Exam - Head Exam Head Exam: ATRAUMATIC, NORMOCEPHALIC - Eye Exam Eye Exam: EOMI, PERRL - ENT Exam ENT Exam: Mucous Membranes Moist - Neck Exam Neck exam: Full Rom, Lymphadenopathy (supraclavicular node palpated on R ) - Respiratory Exam Respiratory Exam: Clear to PA & Lateral, NORMAL BREATHING PATTERN, UNREMARKABLE. absent: Accessory Muscle Use, Rales, Rhonchi, Wheezes, Respiratory Distress - Cardiovascular Exam Cardiovascular Exam: REGULAR RHYTHM, RRR, +S1, +S2. absent: Diastolic murmur, Gallop, Rubs, Systolic Murmur - GI/Abdominal Exam GI & Abdominal Exam: Normal Bowel Sounds, Unremarkable. absent: Tenderness - Extremities Exam Extremities exam: calf tenderness, full ROM - Back Exam Back exam: NORMAL INSPECTION - Neurological Exam Neurological exam: Alert, Oriented x3 - Psychiatric Exam Psychiatric exam: Normal Affect, Normal Mood - Skin Skin Exam: Dry, Intact, Warm Discharge Plan - Discharge Medications Prescriptions: Atorvastatin [Lipitor] 20 mg PO DAILY #30 tab Budesonide [Pulmicort Respules] 0.5 mg IH BID #1 neb Cefpodoxime [Vantin] 200 mg PO BID 7 Days #14 tab Fluticasone/Vilanterol 200/25 [Breo Ellipta 200-25 Mcg INH] 1 puff IH DAILY #1 blst.w.dev Prednisone 10 mg PO DAILY #30 tab.ds.pk Pregabalin [Lyrica] 50 mg PO BID #60 cap Repaglinide 0.5 mg PO TID #90 tablet - Follow Up Plan Condition: GOOD Disposition: HOME/ ROUTINE Instructions: How to Wash Your Hands Properly, Breast Cancer (DC), Portacath (DC) Additional Instructions: Please follow up with Dr. Araiza within one week of discharge. Please decrease your prednisone to 10 mg daily. Please increase your lyrica dose to 50 mg twice daily. We have sent you home on brovana inhaler, please use this once daily for your cough. You may continue to use over the counter cough syrup as needed. We have given you a prescription for an antibiotic, Vantin, please continue to take this for the next 7 days. Referrals: Bhanu Araiza MD [Primary Care Provider] - Patrick Delong MD [Staff Provider] -
--- NOTE | 2018-08-24 08:16 | PN ---
DATE: 08/23/2018 PULMONARY PROGRESS NOTE REFERRING PHYSICIAN: Sanjiv Huitron MD SUBJECTIVE: The patient is seen sitting up in bed, no acute distress. No overnight events reported. Reports having chemotherapy yesterday. States she wore her CPAP machine for two hours last night. Reporting having some coughing, shortness of breath with exertion and also states she is having some irritation to throat. OBJECTIVE: VITAL SIGNS: Blood pressure 118/76, pulse 104, temperature 97.3, oxygen saturation 95% nasal canula. GENERAL: No acute distress. HEENT: Moist mucous membranes. Mallampati score of 4. Crowded airway. NECK: Dressing present on right neck port insertion site. Lymphadenopathy on the neck. LUNGS: Scattered rhonchi. CARDIOVASCULAR: S1 and S2. ABDOMEN: Soft and nontender. No distension. No organomegaly. EXTREMITIES: No bilateral lower extremity edema. NEUROLOGIC: Awake, alert and verbal. Following commands. MEDICATIONS: Reviewed. Tylenol 650 every 6 hours p.r.n., DuoNeb 3 mL inhalation every 4 hours p.r.n., Brovana 15 mcg every 12 hours, Lipitor 20 mg, Tessalon-Perles 200 mg 3 times a day, Pulmicort 0.5 mg inhalation every 12 hours, cefepime 1 g every 8 hours, Benadryl 25 mg IV push at bedtime, p.r.n., Lovenox 40 mg subcutaneous daily, Flonase nasal spray in the evening, Robitussin 200 mg every 4 hours p.r.n., Ativan 0.5 mg IV push at bedtime p.r.n., Singulair 10 mg every evening, morphine 2 mg IV push every 4 hours p.r.n. moderate pain, Zofran 4 mg IV push every 6 hours p.r.n., Protonix 40 mg daily, prednisone 10 mg daily, Lyrica 50 mg twice a day, Prandin 0.5 mg three times a day, sodium chloride 0.45 mg 1000 mL at 80 mL per hour. LABORATORY DATA: Reviewed. WBC 12.3, RBC 4.2, hemoglobin 12.5, hematocrit 39.2, platelets 336. Sodium 137, potassium 4.2, chloride 99, carbon dioxide 26, anion gap 17, BUN 12, creatinine 0.4, GFR greater than 60, random glucose 145, calcium 9.3. Total bilirubin 0.3, AST 33, ALT 44, alkaline phosphatase 111, total protein 7.3, albumin 3.7, globulin 3.5, and albumin-globulin ratio 1.1. Cortisol a.m. sample 1.1. Urinalysis shows urine blood large, urine leukocyte esterase small, urine RBC [address], normal CT of her head. Soft tissue neck CT shows 3 x 3.6 cm nodule mass in the right supraclavicular fossa, no other cervical lymph nodes seen. 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 We will place the patient on Cepacol throat lozenges for sore throat/throat irritation. Continue CPAP use at bedtime. Sleep apnea precaution, head of bed elevated 45 degrees. Recommendation is to have sleep study as outpatient. Continue inhaled bronchodilators, gastric prophylaxis, deep vein thrombosis prophylaxis, leukotriene inhibitors. The patient is on Lyrica for cough. Hematology Oncology followup. Fall precautions. This patient was seen and examined with seen and examined with Dr. Delong. Discussed assessment and plan as described above. This patient was seen and examined with seen and examined with Ashley Reyes, nurse practitioner. Discussed assessment and plan as described above. Eric Ramirez APN Patrick Delong MD ALY
== END 2018-08-23 15:39 | disposition home or self-care (01) | DRG 580 ==
LOC: SDS 12:59 → 3RNO 16:30
PROVIDERS: ADMIT Radiology Vascular & Interventional Radiology; ATTEND Radiology Vascular & Interventional Radiology
PROC: 0JH63WZ Insertion of Totally Implantable Vascular Access Device into Chest Subcutaneous Tissue and Fascia, Percutaneous Approach (ICD-10-PCS; principal; 2018-08-21)
PROC: 02HV33Z Insertion of Infusion Device into Superior Vena Cava, Percutaneous Approach (ICD-10-PCS; 2018-08-21)
PROC: B543ZZA Ultrasonography of Right Jugular Veins, Guidance (ICD-10-PCS; 2018-08-21)
PROC: 3E04305 Introduction of Other Antineoplastic into Central Vein, Percutaneous Approach (ICD-10-PCS; 2018-08-22)
PROC: 5A09357 Assistance with Respiratory Ventilation, Less than 24 Consecutive Hours, Continuous Positive Airway Pressure (ICD-10-PCS; 2018-08-22)
DX: C50.911 Malignant neoplasm of unspecified site of right female breast (principal); C78.01 Secondary malignant neoplasm of right lung; C78.02 Secondary malignant neoplasm of left lung; C77.0 Secondary and unspecified malignant neoplasm of lymph nodes of head, face and neck; N39.0 Urinary tract infection, site not specified; E09.65 Drug or chemical induced diabetes mellitus with hyperglycemia; T38.0X5A Adverse effect of glucocorticoids and synthetic analogues, initial encounter; I10 Essential (primary) hypertension; R13.10 Dysphagia, unspecified; E78.5 Hyperlipidemia, unspecified; G47.30 Sleep apnea, unspecified; Z17.1 Estrogen receptor negative status [ER-]; Z90.12 Acquired absence of left breast and nipple; Z83.3 Family history of diabetes mellitus; Z85.6 Personal history of leukemia; Z88.5 Allergy status to narcotic agent

== ENCOUNTER 2018-08-28 17:24 | Outpatient (CLI) | payer BC | END 2018-08-28 17:25 | disposition home or self-care (01) | LOC: OPLAB 17:24 ==

== ENCOUNTER 2018-08-29 13:31 | Outpatient (CLI) | payer BC | END 2018-08-29 13:32 | disposition home or self-care (01) | LOC: OPLAB 13:31 ==

== ENCOUNTER → 2018-09-05 | Outpatient (CLI) | payer BC | LOC: LAB 12:05 ==

== ENCOUNTER 2018-09-18 12:46 | Outpatient (CLI) | payer BC | END 2018-09-18 12:47 | disposition home or self-care (01) | LOC: OPLAB 12:46 ==

== ENCOUNTER 2018-09-25 12:50 | Outpatient (CLI) | payer BC | END 2018-09-25 12:51 | disposition home or self-care (01) | LOC: OPLAB 12:50 ==

== ENCOUNTER 2018-10-02 12:32 | Outpatient (CLI) | payer BC | END 2018-10-02 12:33 | disposition home or self-care (01) | LOC: OPLAB 12:32 ==

== ENCOUNTER 2018-10-16 17:05 | Outpatient (CLI) | payer BC | END 2018-10-16 17:06 | disposition home or self-care (01) | LOC: OPLAB 17:05 ==

== ENCOUNTER 2018-10-24 12:42 | Outpatient (CLI) | payer BC | END 2018-10-24 12:43 | disposition home or self-care (01) | LOC: OPLAB 12:42 ==